=== PATIENT | female | born 1990 | race Two or more races ===

== ENCOUNTER 2018-11-15 21:55 | Emergency (ER) | payer OTHER ==
[2018-11-15 22:37] VITALS: BP 110/69; PULSE 84; TEMP 98.5; BMI 28.8
--- NOTE | 2018-11-16 00:59 | PDOC ---
History of Present Illness - General Chief Complaint: Pain Stated Complaint: SHOULDER PAIN Time Seen by Provider: 11/16/18 00:43 History Source: Patient - History of Present Illness Initial Comments: 11/16/18 00:57 28 year old female with right elbow AND UPPER ARM PAIN. PATIENT REPORTS THAT SHE FELL OUT OF BED LAST NIGHT. denies head injury/ loc LMP: 10/26/2018 11/16/18 02:28 Past History - Past Medical History Allergies/Adverse Reactions: Allergies Allergy/AdvReac Type Severity Reaction Status Date / Time No Known Allergies Allergy Verified 11/15/18 22:33 Home Medications: Ambulatory Orders Iron 2 tab PO BID 12/10/13 Vitamins (Sjr) - 1 tab PO DAILY 12/10/13 Ibuprofen [Motrin -] 600 mg PO TID PRN #30 tablet 12/11/13 Ibuprofen 600 mg PO QID PRN #20 tablet 11/16/18 Asthma: No Cancer: No Cardiac Disorders: No COPD: No Diabetes: No HTN: No Seizures: No Thyroid Disease: No Other medical history: Pt denies - Suicide/Smoking/Psychosocial Hx Smoking History: Never smoked Have you smoked in the past 12 months: No Information on smoking cessation initiated: No Hx Alcohol Use: No Drug/Substance Use Hx: No Hx Substance Use Treatment: No Review of Systems - Review of Systems Able to Perform ROS?: Yes Is the patient limited Egyptian proficient: No Musculoskeletal: Yes: Other (right elbow and arm pain) *Physical Exam - Vital Signs Last Vital Signs Temp Pulse Resp BP Pulse Ox 98.5 F 84 18 110/69 100 11/15/18 22:34 11/15/18 22:34 11/15/18 22:34 11/15/18 22:34 11/15/18 22:34 - Physical Exam General Appearance: Yes: Appropriately Dressed Musculoskeletal: positive: Normal Inspection Extremity: positive: Normal Range of Motion, Other (limited rom to right elbow ) Integumentary: positive: Normal Color, Dry, Warm Neurologic: positive: Fully Oriented, Alert Progress Note - Progress Note Progress Note: A: right elbow and upper arm pain P: urine xray: NO FRACTURE. official read pending [facility] follow up *DC/Admit/Observation/Transfer Diagnosis at time of Disposition: Right elbow pain Right shoulder pain Qualifiers: Chronicity: acute Qualified Code(s): M25.511 - Pain in right shoulder - Discharge Dispostion Disposition: HOME - Prescriptions Prescriptions: Ibuprofen 600 mg PO QID PRN #20 tablet PRN Reason: Pain - Referrals Referrals: Ladarius Leslie MD [Staff Physician] - Call tomorrow - Patient Instructions Printed Discharge Instructions: DI for Elbow Pain Additional Instructions: You may take ibuprofen every 6 hours as needed for pain. Rest ice keep arm in sling Follow-up with an orthopedic doctor in 1 week. - Post Discharge Activity Forms/Work/School Notes: Back to Work
--- NOTE | 2018-11-16 00:59 | PDOC ---
*Physical Exam - Vital Signs Last Vital Signs Temp Pulse Resp BP Pulse Ox 98.5 F 84 18 110/69 100 11/15/18 22:34 11/15/18 22:34 11/15/18 22:34 11/15/18 22:34 11/15/18 22:34 Medical Decision Making - Medical Decision Making 11/16/18 00:58 Patient seen by the advanced practice provider under my direct supervision. Ancillary testing reviewed as necessary. I agree with plan as outlined by the advanced practice provider. *DC/Admit/Observation/Transfer Diagnosis at time of Disposition: Right elbow pain Right shoulder pain Qualifiers: Chronicity: acute Qualified Code(s): M25.511 - Pain in right shoulder - Discharge Dispostion Disposition: HOME - Referrals Referrals: Ladarius Leslie MD [Staff Physician] - Call tomorrow - Patient Instructions Printed Discharge Instructions: DI for Elbow Pain Additional Instructions: You may take ibuprofen every 6 hours as needed for pain. Rest ice keep arm in sling Follow-up with an orthopedic doctor in 1 week. - Post Discharge Activity Forms/Work/School Notes: Back to Work
== END 2018-11-16 02:34 | disposition home or self-care (01) ==
LOC: JER 21:55
DX: M25.511 Pain in right shoulder (principal); M79.601 Pain in right arm; M25.521 Pain in right elbow; W06.XXXA Fall from bed, initial encounter; Y93.89 Activity, other specified; Y92.032 Bedroom in apartment as the place of occurrence of the external cause; Y99.8 Other external cause status
CPT/HCPCS: 73030-TC-RT-FY; 73060-TC-RT-FY; 73070-TC-RT-FY; 84703; 99281-25

== ENCOUNTER 2019-06-05 17:48 | Emergency (ER) | payer OTHER ==
[2019-06-05 17:54] VITALS: BP 106/66; PULSE 97; TEMP 98.2; BMI 30.4
--- NOTE | 2019-06-05 17:54 | PDOC ---
Rapid Medical Evaluation Time Seen by Provider: 06/05/19 17:51 Medical Evaluation: Allergies Allergy/AdvReac Type Severity Reaction Status Date / Time No Known Allergies Allergy Verified 11/15/18 22:33 06/05/19 17:51 I have performed a brief in-person evaluation of this patient. The patient presents with a chief complaint of: 8 weeks F c/o L lower abdominal pain with spotting and frequency on urination. No burning/pain on urination. [id number]. Pt has an OB but has not had a documented IUP yet in this I have ordered the following: CBC, CMP, Beta HCG, Type and screen, UA, UCx. TVS The patient will proceed to the ED for further evaluation. 06/05/19 17:53 Discharge Disposition - Diagnosis Vaginal bleeding during - Referrals - Patient Instructions - Post Discharge Activity
--- NOTE | 2019-06-05 19:53 | PDOC ---
History of Present Illness - General Chief Complaint: Vaginal Bleeding Stated Complaint: 8 WEEK PREG, VAG. BLEEDING Time Seen by Provider: 06/05/19 17:51 History Source: Patient - History of Present Illness Initial Comments: 06/05/19 19:50 29 year old female c/o vaginal spotting today with wiping once. + nausea. denies pelvic pain, dysuria, + urine test in clinic. Past History - Past Medical History Allergies/Adverse Reactions: Allergies Allergy/AdvReac Type Severity Reaction Status Date / Time No Known Allergies Allergy Verified 06/05/19 17:51 Home Medications: Ambulatory Orders Iron 2 tab PO BID 12/10/13 Vitamins (Sjr) - 1 tab PO DAILY 12/10/13 Ibuprofen [Motrin -] 600 mg PO TID PRN #30 tablet 12/11/13 Ibuprofen 600 mg PO QID PRN #20 tablet 11/16/18 Asthma: No Cancer: No Cardiac Disorders: No COPD: No Diabetes: No HTN: No Seizures: No Thyroid Disease: No - Psycho Social/Smoking Cessation Hx Smoking History: Never smoked Have you smoked in the past 12 months: No Information on smoking cessation initiated: No Hx Alcohol Use: No Drug/Substance Use Hx: No Hx Substance Use Treatment: No Review of Systems - Review of Systems Able to Perform ROS?: Yes Is the patient limited Kinyarwanda proficient: No Constitutional: No: Symptoms Reported, See HPI, Chills, Diaphoresis, Fever, Loss of Appetite, Malaise, Night Sweats, Weakness, Weight Stable, Unintentional Wgt. Loss, Unexplained wgt Loss, Other ABD/GI: Yes: Nausea, Other (vaginal spotting). No: Symptoms Reported, See HPI, Abdominal Distended, Abd. Pain w/ defecation, Blood Streaked Bowels, Constipated , Diarrhea, Difficulty Swallowing, Poor Appetite, Poor Fluid Intake, Rectal Bleeding, Vomiting, Indigestion, Abdominal cramping, Tarry Stools : No: Symptoms Reported, See HPI, Burning, Dysuria, Discharge, Frequency, Flank Pain, Hematuria, Incontinence, Pain, Urgency, Testicular Mass, Testicular Swelling, Lesions, Testicular Pain, Other *Physical Exam - Vital Signs Last Vital Signs Temp Pulse Resp BP Pulse Ox 98.2 F 97 H 18 106/66 99 06/05/19 17:51 06/05/19 17:51 06/05/19 17:51 06/05/19 17:51 06/05/19 17:51 - Physical Exam General Appearance: Yes: Appropriately Dressed Respiratory/Chest: positive: Lungs Clear, Normal Breath Sounds Cardiovascular: positive: Regular Rhythm, Regular Rate Female Pelvic Exam: positive: normal external exam, cervical os closed, normal adnexa, other (suprapubic tenderness, brown discharge in vaginal vault). negative: adnexal tenderness Gastrointestinal/Abdominal: positive: Normal Bowel Sounds, Tender (suprapubic), Soft Musculoskeletal: positive: Normal Inspection Extremity: positive: Normal Capillary Refill, Normal Inspection, Normal Range of Motion ED Treatment Course - LABORATORY CBC & Chemistry Diagram: 06/05/19 19:40 06/05/19 19:40 ED Progress Note - Progress Note Progress Note: 06/05/19 20:01 A: vaginal spotting in early P; labs beta hcg type and screen TVUS Discharge - Discharge Information Problems reviewed: Yes Clinical Impression/Diagnosis: Vaginal bleeding during - Follow up/Referral - Patient Discharge Instructions Patient Printed Discharge Instructions: DI for Vaginal Bleeding Additional Instructions: Return to the ER if you are soaking 2 pads per hour, severe abdominal pain, or worsening symptoms. follow up with your obgyn as soon as possible. - Post Discharge Activity Work/Back to School Note: Back to Work
[2019-06-05 20:01] LABS: BASO % 0.4 % (0-2.0); EOS % 0.5 % (0-4.5); HEMATOCRIT 31.7 % (32.4-45.2); HEMOGLOBIN 10.3 GM/dL (10.7-15.3); LYMPH % 14.4 % (8-40); MCH 28.1 pg (25.7-33.7); MCHC 32.3 g/dl (32.0-36.0); MONO % 6.6 % (3.8-10.2); NEUT % 78.1 % (42.8-82.8); RBC 3.65 M/mm3 (3.60-5.2); RDW 15.4 % (11.6-15.6); WHITE BLOOD COUNT 10.2 K/mm3 (4.0-10.0)
[2019-06-05 20:16] LABS: ALBUMIN 3.6 g/dl (3.4-5.0); BILIRUBIN,TOTAL 0.1 mg/dL (0.2-1); CALCIUM 8.6 mg/dL (8.5-10.1); CREATININE 0.6 mg/dL (0.55-1.3); POTASSIUM 4.4 mmol/L (3.5-5.1); TOT PROT 7.4 g/dl (6.4-8.2)
[2019-06-05 20:33] LABS: EPI CELLS 1.5 /HPF (0-5/HPF); HYALINE CASTS 0 /lpf (0-8); PH,URINE 6.5 (5.0-8.0); URINE APPEARANCE CLEAR; URINE BACTERIA 14.6 /hpf (NEGATIVE); URINE BILIRUBIN NEGATIVE (NEGATIVE); URINE COLOR YELLOW; URINE GLUCOSE (UA) NEGATIVE (NEGATIVE); URINE KETONE NEGATIVE (NEGATIVE); URINE LEUK ESTERASE NEGATIVE (NEGATIVE); URINE NITRITE NEGATIVE (NEGATIVE); URINE PROTEIN NEGATIVE (NEGATIVE); URINE RBC 1 /hpf (0-4); URINE UROBILINOGEN 0.2 mg/dL (0.2-1.0); URINE WBC 1 /hpf (0-5)
[2019-06-05 21:08] LABS: MEAN PLT VOLUME 10.1 fl (7.5-11.1); PLATELET COUNT 251 K/MM3 (134-434); PLATELET ESTIMATE ADEQUATE
== END 2019-06-05 21:57 | disposition home or self-care (01) ==
LOC: JER 17:48
DX: O26.891 Other specified pregnancy related conditions, first trimester (principal); O20.8 Other hemorrhage in early pregnancy; Z3A.08 8 weeks gestation of pregnancy
CPT/HCPCS: 36415; 76801-TC; 80053; 81003; 84702; 85025; 86850; 86900; 86901; 99284-25

== ENCOUNTER 2019-07-30 17:09 | Emergency (ER) | payer OTHER ==
[2019-07-30 17:15] VITALS: BP 122/65; PULSE 118; TEMP 98.4; BMI 32.2
--- NOTE | 2019-07-30 18:10 | PDOC ---
History of Present Illness - General Chief Complaint: Vomiting/Diarrhea Stated Complaint: 17 WEEKS VOMITTING/DIARRHEA History Source: Patient - History of Present Illness Initial Comments: 07/30/19 17:58 Patient is a 29-year-old female G2, P1, LMP 03/31/2019, who is 17 weeks , OB care at [facility], with no PMHx complaining of lower back pain with mild intermittent abdominal pain associated with nausea vomiting and diarrhea since last night. States the pain is like a pressure paraspinal lumbar region 7 /10 worse with sitting down, better with laying down. Denies any bowel or bladder incontinence, no saddle anesthesia. She has taken nothing for the pain. She states no injury however her brother who is currently in the emergency room for the same symptoms of nausea vomiting and diarrhea. She denies any fever, chills, dysuria. PMD: Yuridia PMHX: PSOCHX: neg etoh, durg, cig ALL: NKDA GENERAL/CONSTITUTIONAL: [No fever or chills. No weakness. No weight change.] HEAD, EYES, EARS, NOSE AND THROAT: [No change in vision. No ear pain or discharge. No sore throat.] CARDIOVASCULAR: [No chest pain or shortness of breath.] RESPIRATORY: [No cough, wheezing, or hemoptysis.] GASTROINTESTINAL: [(+) nausea, vomiting, diarrhea (-) constipation. No rectal bleeding.] GENITOURINARY: [No dysuria, frequency, or change in urination.] MUSCULOSKELETAL: [No joint or muscle swelling or pain. No neck or back pain.] SKIN AND BREASTS: [No rash or easy bruising.] NEUROLOGIC: [No headache, vertigo, loss of consciousness, or loss of sensation.] PSYCHIATRIC: [No depression or anxiety.] ENDOCRINE: [No increased thirst. No abnormal weight change.] HEMATOLOGIC/LYMPHATIC: [No anemia, easy bleeding, or history of blood clots.] ALLERGIC/IMMUNOLOGIC: [No hives or skin allergy. No latex allergy.] GENERAL: [The patient is awake, alert, and fully oriented, in no acute distress. ] HEAD: [Normal with no signs of trauma.] EYES: [Pupils equal, round and reactive to light, extraocular movements intact, sclera anicteric, conjunctiva clear.] ENT: [Ears normal, nares patent, oropharynx clear without exudates. dry mucous membranes.] NECK: [Normal range of motion, supple without lymphadenopathy, JVD, or masses.] LUNGS: [Breath sounds equal, clear to auscultation bilaterally. No wheezes, and no crackles.] HEART: [Regular rate and rhythm, normal S1 and S2 without murmur, rub.] ABDOMEN: [Soft, gravid, nontender, normoactive bowel sounds. No guarding, no rebound. No masses, (-) CVAT] BACK: (-) paraspinal or cervial lumbar tenderness EXTREMITIES: [Normal range of motion, no edema. No clubbing or cyanosis. No cords, erythema, or tenderness.] NEUROLOGICAL: [Cranial nerves II through XII grossly intact. Normal speech, normal gait, straight leg raise to 45 degrees] PSYCH: [Normal mood, normal affect.] SKIN: [Warm, Dry, normal turgor, no rashes or lesions noted.] Past History - Past Medical History Allergies/Adverse Reactions: Allergies Allergy/AdvReac Type Severity Reaction Status Date / Time No Known Allergies Allergy Verified 07/30/19 17:15 Home Medications: Ambulatory Orders Iron 2 tab PO BID 12/10/13 Vitamins (Sjr) - 1 tab PO DAILY 12/10/13 Ibuprofen [Motrin -] 600 mg PO TID PRN #30 tablet 12/11/13 Ibuprofen 600 mg PO QID PRN #20 tablet 11/16/18 Asthma: No Cancer: No Cardiac Disorders: No COPD: No Diabetes: No HTN: No Seizures: No Thyroid Disease: No - Psycho Social/Smoking Cessation Hx Smoking History: Never smoked Have you smoked in the past 12 months: No Hx Alcohol Use: No Drug/Substance Use Hx: No Hx Substance Use Treatment: No *Physical Exam - Vital Signs Last Vital Signs Temp Pulse Resp BP Pulse Ox 98.4 F 118 H 18 122/65 99 07/30/19 17:13 07/30/19 17:13 07/30/19 17:13 07/30/19 17:13 07/30/19 17:13 ED Treatment Course - LABORATORY CBC & Chemistry Diagram: 07/30/19 16:18 07/30/19 16:18 Medical Decision Making - Medical Decision Making 07/30/19 17:58 Patient is a 29-year-old female G2, P1, LMP 03/31/2019, who is 17 weeks , OB care at [facility], with no PMHx complaining of lower back pain with mild intermittent abdominal pain associated with nausea vomiting and diarrhea since last night. States the pain is like a pressure paraspinal lumbar region 7 /10 worse with sitting down, better with laying down. Denies any bowel or bladder incontinence, no saddle anesthesia. She has taken nothing for the pain. She states no injury however her brother who is currently in the emergency room for the same symptoms of nausea vomiting and diarrhea. She denies any fever, chills, dysuria. Symptoms consistent with gastroenteritis Labs IV fluids Bedside ultrasound Reassess Bedside ultrasound shows positive FH at rate 142, positive movement. 07/30/19 19:47 Labs reviewed noted mild dehydration (+) ketones Patient was p.o. challenge and is tolerating p.o. Will discharge 07/30/19 19:51 Repeat vitals BP 106/57, pulse 95, O2 sat 99% on room air, temp 97.6 I discussed the physical exam findings, ancillary test results and final diagnoses with the patient. I answered all of the patient's questions. The patient was satisfied with the care received and felt comfortable with the discharge plan and treatment plan. The Patient agrees to follow up with the primary care physician within 24-72 hours. Discharge - Discharge Information Problems reviewed: Yes Clinical Impression/Diagnosis: Gastroenteritis Back pain affecting Qualifiers: Trimester: first trimester Qualified Code(s): O99.89 - Other specified diseases and conditions complicating , childbirth and the puerperium Condition: Stable Disposition: HOME - Follow up/Referral - Patient Discharge Instructions Patient Printed Discharge Instructions: DI for Low Back Pain, DI for Viral Gastroenteritis -- Adult Additional Instructions: Your Discharge Instructions: You must call primary care physician within 24 hours to arrange follow-up. Return to the Emergency Department with any new, persistent or worsening symptoms, for fever, chills, SOB, dizziness or any other concerning changes that may occur. Continue to hydrate, drink lots of fluids. BRAT (bread, rice, applesauce, toast ) diet until symptoms resolve. Print Language: IRAQI - Post Discharge Activity
[2019-07-30] MEDS ORDERED: ACETAMINOPHEN 1000 MG/100 ML VIAL (NON FORMULARY) IVPB ONE (18:11)
[2019-07-30] MEDS ORDERED: SODIUM CHLORIDE 0.9% 500 ML INFUS.BAG IV ONE (18:11)
[2019-07-30] MEDS ORDERED: ACETAMINOPHEN INJECTION 100 ML IVPB ONE (18:24)
[2019-07-30 18:33] LABS: BASO % 0.2 % (0-2.0); EOS % 0.7 % (0-4.5); HEMATOCRIT 32.7 % (32.4-45.2); HEMOGLOBIN 10.8 GM/dL (10.7-15.3); LYMPH % 7.8 % (8-40); MCH 28.9 pg (25.7-33.7); MCHC 33.2 g/dl (32.0-36.0); MEAN CELL VOLUME 87.1 fl (80-96); MEAN PLT VOLUME 10.1 fl (7.5-11.1); MONO % 4.9 % (3.8-10.2); NEUT % 86.4 % (42.8-82.8); PLATELET COUNT 218 K/MM3 (134-434); RBC 3.75 M/mm3 (3.60-5.2); RDW 14.8 % (11.6-15.6); WHITE BLOOD COUNT 9.2 K/mm3 (4.0-10.0)
[2019-07-30] MEDS ORDERED: ONDANSETRON *ODT* 4 MG TABLET ONE (18:34)
[2019-07-30 18:39] LABS: EPI CELLS 9.6 /HPF (0-5/HPF); HYALINE CASTS 19 /lpf (0-8); URINE APPEARANCE CLOUDY; URINE BACTERIA 255.2 /hpf (NEGATIVE); URINE BILIRUBIN 1+ (NEGATIVE); URINE COLOR DK YELLOW; URINE GLUCOSE (UA) NEGATIVE (NEGATIVE); URINE KETONE 3+ (NEGATIVE); URINE LEUK ESTERASE 1+ (NEGATIVE); URINE NITRITE NEGATIVE (NEGATIVE); URINE PROTEIN TRACE (NEGATIVE); URINE RBC 4 /hpf (0-4); URINE WBC 5 /hpf (0-5)
[2019-07-30 19:05] LABS: ALBUMIN 3.4 g/dl (3.4-5.0); BILIRUBIN,TOTAL 0.4 mg/dL (0.2-1); BLOOD UREA NITROGEN 7.4 mg/dL (7-18); CALCIUM 8.6 mg/dL (8.5-10.1); CREATININE 0.5 mg/dL (0.55-1.3); POTASSIUM 3.8 mmol/L (3.5-5.1); TOT PROT 7.4 g/dl (6.4-8.2)
== END 2019-07-31 00:45 | disposition home or self-care (01) ==
LOC: JER 17:09
PROC: 3E033NZ Introduction of Analgesics, Hypnotics, Sedatives into Peripheral Vein, Percutaneous Approach (ICD-10-PCS; principal; 2019-07-30)
DX: O26.892 Other specified pregnancy related conditions, second trimester (principal); Z3A.17 17 weeks gestation of pregnancy; K52.9 Noninfective gastroenteritis and colitis, unspecified
CPT/HCPCS: 36415; 80053; 81003; 85025; 87086; 99281-25; J0131

== ENCOUNTER 2020-03-05 23:32 | Emergency (ER) | payer OTHER ==
[2020-03-05 23:44] VITALS: BMI 26.5
[2020-03-05] MEDS ORDERED: ACETAMINOPHEN 500 MG TABLET (FP) PO ONE (23:52)
--- NOTE | 2020-03-05 23:53 | PDOC ---
History of Present Illness - General Chief Complaint: Respiratory Stated Complaint: FEVER/COUGH/SORE THROAT Time Seen by Provider: 03/05/20 23:51 History Source: Patient - History of Present Illness Initial Comments: 03/06/20 00:22 30-year-old female complaining of fever/cough, throat pain since last night. Patient reports taking ibuprofen at 9 PM. Denies shortness of breath, nausea, vomiting, abdominal pain, dizziness, chest pain. Unsure exposed to COVID-19 no past medical history Past History - Medical History Allergies/Adverse Reactions: Allergies Allergy/AdvReac Type Severity Reaction Status Date / Time No Known Allergies Allergy Verified 03/05/20 23:44 Home Medications: Ambulatory Orders Pnv No.95/Ferrous Fum/Folic AC [ Formula] 1 each PO DAILY 01/08/20 Acetaminophen [Tylenol] 650 mg PO Q6H PRN #30 capsule MDD 5 01/09/20 Ibuprofen 600 mg PO Q6H PRN #30 tablet 01/09/20 Miscellaneous Medical Supply [Breast Pump, Electronic] 1 each NR ASDIR #1 unit 01/09/20 Asthma: No Cancer: No Cardiac Disorders: No COPD: No Diabetes: No HTN: No Seizures: No Thyroid Disease: No - Psycho-Social/Smoking History Smoking History: Never smoked Have you smoked in the past 12 months: No - Substance Abuse Hx (Audit-C & DAST Scrn) How often the patient has a drink containing alcohol: Never Score: In Men: 4 or > Positive; In Women: 3 or > Positive: 0 Screen Result (Pos requires Nsg. Audit-10AR): Negative Review of Systems - Review of Systems Able to Perform ROS?: Yes Is the patient limited Congolese proficient: No Constitutional: Yes: Fever HEENTM: Yes: Throat Pain. No: Symptoms Reported, See HPI, Eye Pain, Blurred Vision, Tearing, Recent change in vision, Double Vision, Cataracts, Ear Pain, Ocular Prothesis, Ear Discharge, Nose Pain, Nose Congestion, Tinnitus, Nose Bleeding, Hearing Loss, Throat Swelling, Mouth Pain, Dental Problems, Difficulty Swallowing, Mouth Swelling, Other Respiratory: Yes: Cough. No: Symptoms reported, See HPI, Orthopnea, Shortness of Breath, SOB with Exertion, SOB at Rest, Stridor, Wheezing, Productive cough, Hemoptysis, Other Cardiac (ROS): No: Symptoms Reported, See HPI, Chest Pain, Edema, Irregular Heart Rate, Lightheadedness, Palpitations, Syncope, Chest Tightness, Other *Physical Exam - Vital Signs Last Vital Signs Temp Pulse Resp BP Pulse Ox 100.7 F H 117 H 18 127/80 98 03/05/20 23:42 03/05/20 23:42 03/05/20 23:42 03/05/20 23:42 03/05/20 23:42 - Physical Exam General Appearance: Yes: Appropriately Dressed HEENT: positive: Tonsillar Erythema (b/l tonsillar mild edema. not kissing tonsills, no exudate) Respiratory/Chest: positive: Lungs Clear, Normal Breath Sounds. negative: Chest Tender Cardiovascular: positive: Tachycardia Gastrointestinal/Abdominal: positive: Normal Bowel Sounds, Soft. negative: Tender Extremity: positive: Normal Capillary Refill, Normal Inspection Integumentary: positive: Normal Color, Dry, Warm Neurologic: positive: Fully Oriented, Alert, Normal Mood/Affect ED Progress Note - Progress Note Progress Note: 03/06/20 03:43 A: suspected covid; throat pain P: covid rapid strep negative Discharge - Discharge Information Problems reviewed: Yes Clinical Impression/Diagnosis: Viral syndrome, Suspected 2019 novel coronavirus infection Disposition: HOME - Follow up/Referral - Patient Discharge Instructions Patient Printed Discharge Instructions: [facility] COVID-19 Isolation Protocol Additional Instructions: You were seen for your cough and possible Coronavirus (COVID-19) Please call the [facility] testing center to make an appointment at or you can call [facility] at from 8:30 AM to 6 PM; or you can visit the [facility] website: [email or web address] for more information about testing at the [facility]. Take Tylenol 650 mg every 6 hours as needed for fever or pain. You may take Robitussin or other [id number] cough syrup. Follow the dosing instructions on the bottle. Warm tea, honey, and salt water gargles may help your symptoms. Please take precautions and self quarantine for 2 weeks and follow-up with your primary care doctor and the Department of Health. Return to the nearest emergency department for shortness of breath, difficulty breathing, chest pain, or if you have any changes in your symptoms. - Post Discharge Activity Work/Back to School Note: Back to Work
--- NOTE | 2020-03-06 00:04 | PDOC ---
*Physical Exam - Vital Signs Last Vital Signs Temp Pulse Resp BP Pulse Ox 100.7 F H 117 H 18 127/80 98 03/05/20 23:42 03/05/20 23:42 03/05/20 23:42 03/05/20 23:42 03/05/20 23:42 Medical Decision Making - Medical Decision Making 03/06/20 00:04 Patient seen by the advanced practice provider under my supervision. Ancillary testing reviewed as necessary. I agree with plan as outlined by the advanced practice provider. Discharge - Discharge Information Problems reviewed: Yes Clinical Impression/Diagnosis: Viral syndrome, Suspected 2019 novel coronavirus infection Disposition: HOME - Follow up/Referral - Patient Discharge Instructions Patient Printed Discharge Instructions: [facility] COVID-19 Isolation Protocol Additional Instructions: You were seen for your cough and possible Coronavirus (COVID-19) Please call the [facility] testing center to make an appointment at or you can call [facility] at from 8:30 AM to 6 PM; or you can visit the [facility] website: [email or web address] for more information about testing at the [facility]. Take Tylenol 650 mg every 6 hours as needed for fever or pain. You may take Robitussin or other [id number] cough syrup. Follow the dosing instructions on the bottle. Warm tea, honey, and salt water gargles may help your symptoms. Please take precautions and self quarantine for 2 weeks and follow-up with your primary care doctor and the Department of Health. Return to the nearest emergency department for shortness of breath, difficulty breathing, chest pain, or if you have any changes in your symptoms. - Post Discharge Activity Work/Back to School Note: Back to Work
[2020-03-06 00:46] LABS: THROAT:GRP A STREP ANTIGEN Negative (Negative)
[2020-03-06 01:45] VITALS: BP 115/83; PULSE 103; TEMP 98.8
== END 2020-03-06 01:30 | disposition home or self-care (01) ==
LOC: JER 23:32
DX: B34.9 Viral infection, unspecified (principal)
CPT/HCPCS: 87070; 87880; 99283-25; U0003

== ENCOUNTER 2021-12-15 07:25 | Inpatient (IN) | payer OTHER ==
[2021-12-15 08:41] VITALS: BMI 32.4
[2021-12-15] MEDS: ELECTROLYTE-148 SOLN 1,000 ML IV SCH ×2 (08:45→14:30)
[2021-12-15] MEDS ORDERED: OXYTOCIN 30 UNITS in 0.9% NS 30 UNIT/500 ML INFUS.BAG IVPB SCH (09:00)
[2021-12-15] MEDS ORDERED: OXYTOCIN 30 UNITS in 0.9% NS 30 UNIT/500 ML INFUS.BAG IVPB ONE (09:23)
[2021-12-15] MEDS ORDERED: FENTANYL/BUPIVACAINE/NS/PF - PCEA - 50 ML DISP.SYRIN EP ONE ×2 (13:55→14:22)
[2021-12-15] MEDS ORDERED: NALOXONE HCL 0.4 MG/ML VIAL IVPUSH PRN (15:18)
[2021-12-15] MEDS ORDERED: FENTANYL/BUPIVACAINE/NS/PF - PCEA - 50 ML DISP.SYRIN EP SCH (15:30)
[2021-12-15] MEDS ORDERED: ACETAMINOPHEN 325 MG TABLET (FP) PO PRN (17:31)
[2021-12-15] MEDS ORDERED: BISACODYL 10 MG SUPP.RECT RC PRN (17:31)
[2021-12-15] MEDS ORDERED: BENZOCAINE 20% 57 GM BOTTLE TP PRN (17:31)
[2021-12-15] MEDS ORDERED: oxyCODONE HCL 5 MG TABLET PO PRN (17:31)
[2021-12-15] MEDS ORDERED: IBUPROFEN 600 MG TABLET (FP) PO PRN (17:31)
[2021-12-15] MEDS ORDERED: METHYLERGONOVINE MALEATE 0.2 MG/1 ML AMP IM PRN (17:31)
[2021-12-15] MEDS ORDERED: BENZOCAINE 28 GM HEMORRHOIDAL OINTMENT TP PRN (17:31)
[2021-12-15] MEDS ORDERED: WITCH HAZEL 50% (TUCKS) 40 PAD/JAR PAD TP PRN (17:31)
[2021-12-15] MEDS ORDERED: OXYTOCIN 20 UNITS in 0.9% NS 20 UNIT/1,000 ML INFUS.BAG IV ONE (17:43)
[2021-12-15] MEDS ORDERED: OXYTOCIN 20 UNITS in 0.9% NS 20 UNIT/1,000 ML INFUS.BAG IV SCH (17:45)
[2021-12-15 19:15] LABS: CORD HCO3 20.3 mmHg (20-29); CORD PCO2 47.3 mmHg (30-78); CORD pH 7.25 (7.14-7.44)
[2021-12-15 19:17] LABS: CORD BASE EXCESS -7.1 mmol/L (0-2); CORD HCO3 21.2 mmHg (20-29); CORD PCO2 53.5 mmHg (30-78); CORD pH 7.216 (7.14-7.44)
[2021-12-16 09:29] LABS: BASO % 0.1 % (0-2.0); EOS % 0.4 % (0-4.5); HEMOGLOBIN 10.5 GM/dL (10.7-15.3); LYMPH % 9.6 % (8-40); MCHC 32.8 g/dl (32.0-36.0); MEAN CELL VOLUME 88.3 fl (80-96); MEAN PLT VOLUME 11.4 fl (7.5-11.1); MONO % 7.1 % (3.8-10.2); NEUT % 82.8 % (42.8-82.8); PLATELET COUNT 145 10^3/uL (134-434); RBC 3.62 M/mm3 (3.60-5.2); RDW 14.8 % (11.6-15.6); WHITE BLOOD COUNT 11.6 K/mm3 (4.0-10.0)
[2021-12-16] MEDS ORDERED: SENNOSIDES/DOCUSATE COMBO (SENNA PLUS) TABLET (UD) PO PRN (22:00)
[2021-12-17 13:15] VITALS: BP 122/79; PULSE 95; TEMP 98.3
== END 2021-12-17 15:25 | disposition home or self-care (01) | DRG 560 ==
LOC: JLDR 07:25 → J3W 20:25
PROVIDERS: ADMIT Family Medicine; ATTEND Family Medicine
PROC: 10E0XZZ Delivery of Products of Conception, External Approach (ICD-10-PCS; principal; 2021-12-15)
DX: O69.81X0 Labor and delivery complicated by cord around neck, without compression, not applicable or unspecified (principal); Z3A.40 40 weeks gestation of pregnancy; Z37.0 Single live birth
CPT/HCPCS: 36415; 36600; 59025; 59409; 80048; 82803; 85025; 85610; 85730; 86780; 86850; 86900; 86901; C9803-CS; G0463-25; U0003; U0005

== ENCOUNTER 2024-05-09 10:25 | Emergency (ER) | payer OTHER ==
[2024-05-09 10:31] VITALS: BP 117/82; PULSE 78; RESP 20; TEMP 97.6; BMI 28.8
[2024-05-09] MEDS ORDERED: ACETAMINOPHEN 325 MG TABLET (FP) ONE (11:28)
[2024-05-09] MEDS: ACETAMINOPHEN 500 MG TABLET (FP) PO ONE (11:31)
[2024-05-09 11:44] LABS: BASO % 0.4 % (0-2.0); EOS % 1.2 % (0-4.5); HEMATOCRIT 31.6 % (32.4-45.2); HEMOGLOBIN 10.1 GM/dL (10.7-15.3); MCH 27.3 pg (25.7-33.7); MCHC 31.9 g/dl (32.0-36.0); MEAN CELL VOLUME 85.5 fl (80-96); MEAN PLT VOLUME 10.3 fl (7.5-11.1); MONO % 7.7 % (3.8-10.2); NEUT % 72.7 % (42.8-82.8); PLATELET COUNT 256 10^3/uL (134-434); RBC 3.69 M/mm3 (3.60-5.2); RDW 18.4 % (11.6-15.6); WHITE BLOOD COUNT 9.3 K/mm3 (4.0-10.0)
[2024-05-09 12:08] LABS: POTASSIUM 4.2 mmol/L (3.5-5.1)
[2024-05-09 12:11] LABS: ALBUMIN 3.8 g/dl (3.4-5.0); BLOOD UREA NITROGEN 12.1 mg/dL (7-18); CALCIUM 9.3 mg/dL (8.5-10.1)
[2024-05-09 12:14] LABS: CREATININE 0.6 mg/dL (0.55-1.3)
[2024-05-09 12:16] LABS: BILIRUBIN,TOTAL 0.3 mg/dL (0.2-1); TOT PROT 7.5 g/dl (6.4-8.2)
[2024-05-09 12:38] LABS: HIV INTERPRETATION NEGATIVE (NEGATIVE)
== END 2024-05-09 13:51 | disposition home or self-care (01) ==
LOC: JERFT 10:25
DX: M79.604 Pain in right leg (principal)
CPT/HCPCS: 36415; 80053; 84703; 85025; 86803; 87389; 93971-TC; 99283-25